=== PATIENT | male | born 1960 | race Caucasian/White ===

== ENCOUNTER 2023-04-10 12:01 | Inpatient (IN) | payer MEDICAID, OTHER ==
[2023-04-10] MEDS ORDERED: Sodium Chloride 0.9% 2.5 ML Syringe FLUSH PRN (12:17)
[2023-04-10] MEDS ORDERED: Sodium Chloride 0.9% 10 ML Syringe FLUSH PRN (12:17)
[2023-04-10] MEDS ORDERED: Labetalol 100 MG/20 ML MDV IVPUSH ONE (12:25)
[2023-04-10 12:46] LABS: BASOPHILS PERCENT AUTO 0.3 % (0.0-1.5); EOSINOPHILS ABSOLUTE AUTO 0.1 K/uL (0.0-0.7); EOSINOPHILS PERCENT AUTO 1.1 % (0.0-7.0); HEMATOCRIT 52.2 % (38.0-50.0); HEMOGLOBIN 17.7 g/dL (13.0-17.0); LYMPHOCYTES ABSOLUTE AUTO 0.9 K/uL (0.6-2.4); MEAN CORPUSCULAR HEMOGLOBIN 30.6 pg (27.0-32.0); MEAN CORPUSCULAR HGB CONC 33.9 g/dL (31.0-37.0); MEAN CORPUSCULAR VOLUME 90.2 fL (80.0-98.0); MONOCYTES ABSOLUTE AUTO 0.9 K/uL (0.0-0.8); MONOCYTES PERCENT AUTO 13.5 % (0.0-15.0); NEUTROPHILS ABSOLUTE AUTO 4.7 K/uL (1.4-5.7); NEUTROPHILS PERCENT AUTO 72.1 % (48.0-80.0); PLATELET COUNT,PLT 274 K/uL (150-400); RED BLOOD CELL COUNT 5.79 M/uL (4.50-5.90); WHITE BLOOD CELL COUNT,WBC 6.53 K/uL (4.0-11.0)
[2023-04-10 13:09] LABS: A/G RATIO 0.9 (0.9-1.6); ALBUMIN 3.9 g/dL (3.4-5.0); BILIRUBIN TOTAL 0.6 mg/dL (0.2-1.0); CALCIUM 9.1 mg/dL (8.5-10.1); CARBON DIOXIDE,CO2 24.4 mmol/L (21.0-32.0); CREATININE 1.3 mg/dL (0.8-1.3); EST CRCL DRUG DOSING (CG) 58.49 mL/min; PROTEIN TOTAL,TP 8.3 g/dL (6.4-8.2)
[2023-04-10 13:22] LABS: INR 1.03 (0.86-1.11); PTT,PARTIAL THROMBOPLSTIN TIME 29.1 SEC (23.9-30.7)
[2023-04-10] MEDS ORDERED: Iopamidol 755 MG/ML 500 ML Multipack Bottle IVPUSH STA (14:23)
[2023-04-10] MEDS ORDERED: Metoprolol Tartrate 25 MG Tab PO SCH (16:30)
[2023-04-10] MEDS: Aspirin 81 MG Tab.Chew PO SCH (17:07)
[2023-04-10] MEDS: Metoprolol Tartrate 25 MG Tab PO SCH (17:08)
[2023-04-10] MEDS ORDERED: atorvaSTATin 40 MG Tab PO SCH (21:00)
[2023-04-11 06:53] LABS: BASOPHILS PERCENT AUTO 0.4 % (0.0-1.5); EOSINOPHILS ABSOLUTE AUTO 0.1 K/uL (0.0-0.7); HEMATOCRIT 47.1 % (38.0-50.0); LYMPHOCYTES PERCENT AUTO 17.6 % (16.0-40.0); MEAN CORPUSCULAR HEMOGLOBIN 30.8 pg (27.0-32.0); MEAN CORPUSCULAR VOLUME 90.6 fL (80.0-98.0); MONOCYTES ABSOLUTE AUTO 0.8 K/uL (0.0-0.8); MONOCYTES PERCENT AUTO 14.4 % (0.0-15.0); NEUTROPHILS ABSOLUTE AUTO 3.7 K/uL (1.4-5.7); NEUTROPHILS PERCENT AUTO 65.6 % (48.0-80.0); NRBC ABSOLUTE 0 K/uL; PLATELET COUNT,PLT 277 K/uL (150-400); WHITE BLOOD CELL COUNT,WBC 5.62 K/uL (4.0-11.0)
[2023-04-11] MEDS: Metoprolol Tartrate 25 MG Tab PO SCH (06:53)
[2023-04-11 07:16] LABS: CALCIUM 9.1 mg/dL (8.5-10.1); CARBON DIOXIDE,CO2 24.8 mmol/L (21.0-32.0); CREATININE 1.3 mg/dL (0.8-1.3); EST CRCL DRUG DOSING (CG) 58.49 mL/min; POTASSIUM,K 3.8 mmol/L (3.5-5.1)
[2023-04-11] MEDS ORDERED: Gadobenate Dimeglumine 529 MG/ML 20 ML SDV IVPUSH STA (07:39)
[2023-04-11] MEDS: Aspirin 81 MG Tab.Chew PO SCH (08:44)
== END 2023-04-11 10:46 | disposition home or self-care (01) | DRG 123 ==
LOC: MW.ED 12:01 → MW.ICU 15:33
PROVIDERS: ADMIT Internal Medicine; ATTEND Internal Medicine
DX: H47.011 Ischemic optic neuropathy, right eye (principal); I63.9 Cerebral infarction, unspecified; I65.23 Occlusion and stenosis of bilateral carotid arteries; G51.0 Bell's palsy; I10 Essential (primary) hypertension; Z79.82 Long term (current) use of aspirin; Z79.899 Other long term (current) drug therapy
CPT/HCPCS: 36415; 70450; 70450-26; 70496; 70496-26; 70498; 70498-26; 70553; 70553-26; 80048; 80053; 84484; 85025; 85610; 85730; 93005; 93010; 96374; 99285; 99285-25; A9270-GY; A9577; J3490; Q9967

== ENCOUNTER 2023-09-10 22:02 | Emergency (ER) | payer MEDICARE, OTHER, MEDICAID ==
[2023-09-11 00:13] LABS: BASOPHILS ABSOLUTE AUTO 0.06 K/uL (0.00-0.20); BASOPHILS PERCENT AUTO 0.8 % (0.0-1.0); EOSINOPHILS ABSOLUTE AUTO 0.32 K/uL (0.00-0.45); EOSINOPHILS PERCENT AUTO 4.3 % (0.0-6.0); HEMATOCRIT 46.8 % (42.0-52.0); HEMOGLOBIN 16.5 g/dL (14.0-18.0); IMMATURE GRAN ABSOLUTE AUTO 0.02 K/uL (0.00-0.05); IMMATURE GRAN PERCENT AUTO 0.3 % (0.0-0.4); LYMPHOCYTES ABSOLUTE AUTO 1.25 K/uL (1.00-4.80); LYMPHOCYTES PERCENT AUTO 16.8 % (24.0-44.0); MEAN CORPUSCULAR HEMOGLOBIN 31.8 pg (28.0-32.0); MEAN CORPUSCULAR HGB CONC 35.3 g/dL (32.0-36.0); MEAN CORPUSCULAR VOLUME 90.2 fL (83.0-99.0); MEAN PLATELET VOLUME 10.7 fL (9.4-12.4); MONOCYTES ABSOLUTE AUTO 0.97 K/uL (0.00-0.80); NEUTROPHILS ABSOLUTE AUTO 4.82 K/uL (1.80-7.70); NEUTROPHILS PERCENT AUTO 64.8 % (41.0-71.0); PLATELET COUNT,PLT 229 K/uL (150-400); RED BLOOD CELL COUNT 5.19 M/uL (4.52-5.90); WHITE BLOOD CELL COUNT,WBC 7.44 K/uL (3.9-11.3)
[2023-09-11 00:44] LABS: CALCIUM 9.7 mg/dL (8.5-10.1); CARBON DIOXIDE,CO2 24.4 mmol/L (21.0-32.0); CREATININE 1.2 mg/dL (0.8-1.3); EST CRCL DRUG DOSING (CG) 59.38 mL/min; POTASSIUM,K 4.5 mmol/L (3.5-5.1)
== END 2023-09-11 01:21 | disposition home or self-care (01) ==
LOC: MW.ED 22:02
DX: I10 Essential (primary) hypertension (principal); Z79.899 Other long term (current) drug therapy
CPT/HCPCS: 36415; 71046; 71046-26; 80048; 83880; 84484; 85025; 93005; 93010; 99282; 99284